=== PATIENT | female | born 1995 | race Caucasian/White ===

== ENCOUNTER 2019-07-03 20:38 | Emergency (ER) | payer MEDICAID, OTHER ==
[~2019-07-03] VITALS: Ht 160 cm; Wt 45.4 kg
[2019-07-03] MEDS ORDERED: FLUORESCEIN SODIUM 1 MG STRIP ONE (21:10)
[2019-07-03] MEDS ORDERED: TETRACAINE HCL 0.5% OPHT DROP 2 ML BOTTLE ONE ×2 (21:10→21:37)
[2019-07-03] MEDS ORDERED: FLUORESCEIN SODIUM 1 MG STRIP OP ONE (21:15)
[2019-07-03] MEDS ORDERED: TETRACAINE HCL 0.5% OPHT DROP 2 ML BOTTLE OP ONE (21:15)
[2019-07-03] MEDS ORDERED: HYDROCODONE/APAP 5-325MG TABLET PO ONE (21:30)
[2019-07-03] MEDS ORDERED: CYCLOPENTOLATE 1% OPHT DROP 2 ML BOTTLE OP ONE (21:30)
[2019-07-03] MEDS ORDERED: CYCLOPENTOLATE 1% OPHT DROP 2 ML BOTTLE ONE (21:37)
[2019-07-03] MEDS ORDERED: HYDROCODONE/APAP 5-325MG TABLET ONE (21:38)
--- NOTE | 2019-07-03 21:39 | NUR ---
PT IS IN ROOM #3. DR EASLEY EVALUATED THE PT.
--- NOTE | 2019-07-03 21:50 | NUR ---
PT WAS D/C'd TO HOME. D/CINSTRUCTIONS GIVEN TO THE PT.
[2019-07-03 21:57] VITALS: BP 126/70
== END 2019-07-03 21:58 | disposition home or self-care (01) ==
LOC: ER 20:42
DX: S05.02XA Injury of conjunctiva and corneal abrasion without foreign body, left eye, initial encounter (principal); H11.32 Conjunctival hemorrhage, left eye; F17.200 Nicotine dependence, unspecified, uncomplicated; Y04.2XXA Assault by strike against or bumped into by another person, initial encounter; Y93.89 Activity, other specified; Y92.89 Other specified places as the place of occurrence of the external cause; Y99.8 Other external cause status
CPT/HCPCS: A4663